=== PATIENT | male | born 1975 | race Caucasian/White ===

== ENCOUNTER 2020-05-05 15:44 | Emergency (ER) | payer OTHER ==
[~2020-05-05] VITALS: Ht 162.6 cm; Wt 81.8 kg
[2020-05-05 15:46] VITALS: BP 134/89
[2020-05-05] MEDS ORDERED: CYCL-1 PO (16:12)
[2020-05-05] MEDS ORDERED: ondansetron 4mg rapidly disintigrating tab PO ONE (16:15)
== END 2020-05-05 16:46 | disposition home or self-care (01) ==
LOC: ER 15:45
DX: S13.4XXA Sprain of ligaments of cervical spine, initial encounter (principal); Z79.899 Other long term (current) drug therapy; V43.52XA Car driver injured in collision with other type car in traffic accident, initial encounter; W22.19XA Striking against or struck by other automobile airbag, initial encounter; Y93.89 Activity, other specified; Y92.410 Unspecified street and highway as the place of occurrence of the external cause; Y99.8 Other external cause status
CPT/HCPCS: 99283

== ENCOUNTER 2022-05-17 21:57 | Emergency (ER) | payer BC ==
[~2022-05-17] VITALS: Ht 162.6 cm; Wt 72.7 kg
[~2022-05-17 21:57] MED LIST: CYCL-1 PO
[2022-05-17] MEDS ORDERED: ketorolac trometh. 30mg/ml inj. IV ONE ×2 (22:30→22:40)
[2022-05-17] MEDS ORDERED: ringers solution, lacted 1,000 ML IV ONE (22:30)
[2022-05-17 22:53] LABS: BASOPHILS % (AUTO) 0.2 % (0-1); EOSINOPHILS % (AUTO) 0.5 % (0-6); HEMATOCRIT 42.7 % (42.0-52.0); HEMOGLOBIN 14.6 g/dl (14.0-17.9); LYMPHOCYTES # (AUTO) 1.8 X10'3 (1.1-4.8); LYMPHOCYTES % (AUTO) 21.9 % (21-51); MEAN CORPUSCULAR HEMOGLOBIN 31.9 PG (27.0-31.0); MEAN CORPUSCULAR HGB CONC 34.1 g/dL (33.0-36.5); MEAN CORPUSCULAR VOLUME 93.5 FL (78-98); MEAN PLATELET VOLUME 7.6 FL (7.4-10.4); MONOCYTES # (AUTO) 0.5 X10'3 (0-0.9); MONOCYTES % (AUTO) 6.3 % (2-12); NEUTROPHILS # (AUTO) 5.8 X10'3 (1.8-7.7); NEUTROPHILS % (AUTO) 71.1 % (42-75); PLATELET COUNT 288 X10'3 (140-440); RED BLOOD COUNT 4.57 X10'6 (4.70-6.10); RED CELL DISTRIBUTION WIDTH 12.7 % (11.5-14.5); WHITE BLOOD COUNT 8.2 X10'3 (4.5-11.0)
[2022-05-17 22:59] LABS: ALANINE AMINOTRANSFERASE 27 U/L (12-78); ALBUMIN 4.7 G/DL (3.4-5.0); ALBUMIN/GLOBULIN RATIO 1.5 (1.1-1.5); ALKALINE PHOSPHATASE 73 IU/L (46-116); ANION GAP 15 (8-16); ASPARTATE AMINO TRANSFERASE 20 U/L (10-37); BILIRUBIN,TOTAL 0.8 MG/DL (0.1-1.0); BLOOD UREA NITROGEN 24 MG/DL (7-18); BUN/CREATININE RATIO 13.4 (5.4-32.0); CALCIUM 10.2 MG/DL (8.5-10.1); CHLORIDE 102 MMOL/L (99-107); CREATININE 1.79 MG/DL (0.60-1.10); GLUCOSE 189 MG/DL (70-104); POTASSIUM 3.7 MMOL/L (3.5-5.1); SODIUM 139 MMOL/L (135-145); TOTAL CARBON DIOXIDE 21.7 MMOL/L (24-32); TOTAL PROTEIN 7.9 G/DL (6.4-8.2); eGFR 41 ML/MIN
--- NOTE | 2022-05-17 23:43 | NUR ---
Pt left for CT in wheelchair on RA.
[2022-05-18 00:34] LABS: CLARITY,URINE SLIGHTLY CLOUDY (Clear); COLOR,URINE YELLOW (Yellow); GLUCOSE, URINE 100 mg/dl (Neg); KETONES,URINE >=80 mg/dl (Neg); LEUKOCYTE ESTERASE ,URINE NEGATIVE (Neg); NITRITES, URINE NEGATIVE (Neg); OCCULT BLOOD,URINE LARGE (Neg); PROTEIN,URINE TRACE mg/dl (Neg); UROBILINOGEN,URINE 0.2 E.U/dL (0.2-1.0)
[2022-05-18 00:43] LABS: UA COLLECTION TYPE CLN CATCH MIDSTREAM
[2022-05-18 00:47] LABS: BACTERIA,URINE FEW /HPF (Neg); SQUAMOUS EPITHELIAL CELL,UR FEW /LPF (FEW)
[2022-05-18 00:48] LABS: YEAST FEW /HPF (NEGATIVE)
[2022-05-18] MEDS ORDERED: METO-292 PO (01:10)
[2022-05-18] MEDS ORDERED: SULF1TAB49 PO (01:10)
[2022-05-18] MEDS ORDERED: sulfamethoxazole/trimethoprim DS (800/160mg) tablet PO ONE (01:10)
[2022-05-18] MEDS ORDERED: metoclopramide 5 mg/ml inj IV ONE (01:10)
[2022-05-18 01:32] VITALS: BP 108/67
== END 2022-05-18 01:33 | disposition home or self-care (01) ==
LOC: ER 21:59
DX: N39.0 Urinary tract infection, site not specified (principal); R10.84 Generalized abdominal pain; Z88.1 Allergy status to other antibiotic agents; Z79.2 Long term (current) use of antibiotics; Z79.899 Other long term (current) drug therapy
CPT/HCPCS: 36415; 74176; 80053; 81001; 85025; 87088; 96361; 96374; 96375; 99284; J1885; J2765; J7120